=== PATIENT | female | born 1985 | race Caucasian/White ===

== ENCOUNTER 2016-10-09 19:13 | Emergency (ER) | payer OTHER ==
--- NOTE | ~2016-10-09 | CT4 ---
[facility] A Service of [facility] & [facility] RADIOLOGY TEXT RESULTS PATIENT: NOHELIA RODRIGUEZ LOCATION: [facility] : 81 UNIT #: [id number] AGE: [address]: Zac Quinn MD SEX: F ORDER DR: [id number] [facility] [address] [place], [place] [address] [id number] MR#: [id number] #: [id number] NAME: NOHELIA RODRIGUEZ : 1985 SEX: F STUDY DATE/TIME: 10/09/2016 19:31 UNIT: [facility] ROOM: STUDY DESCRIPTION: CT Abd and Pelv Wo Cont Attending Physician: Zac Quinn M.D. Ordering Physician: Zac Quinn M.D. Primary Care Physician: [facility], [facility]. MEDICAL IMAGING REPORT This report is preliminary unless electronic signature is present EXAM CT abdomen and pelvis without IV contrast COMPARISON January 09, 2013. INDICATIONS 31-year-old female with left-sided abdominal pain radiating to the back for [address] exam was performed with one or more of the following radiation dose reduction techniques: Automatic exposure control, adjustment of mA and/or kV according to patient size, and iterative reconstruction. FINDINGS Axial CT imaging of the abdomen and pelvis was performed without IV contrast. Lack of IV contrast limits evaluation of adenopathy, vasculature and viscera. Coronal and sagittal reformats were constructed. Very small fat-containing umbilical hernia. There is also apparent fat and possibly fluid containing very tiny hernia along the midline lower anterior abdominal wall, new from comparison, perhaps incisional. No acute fractures or suspicious osseous lesions. No acute findings in imaged chest. Unenhanced liver, gallbladder, pancreas, spleen, adrenal glands and right kidney are unremarkable. There is nonobstructive calculus in the mid pole of the left kidney. There is mild left pelvocaliectasis and mild left hydroureter due to an obstructing calculus in the distal left ureter just above the ureterovesicular junction. This calculus measures approximately 3 mm. There are bilateral pelvic phleboliths. Urinary bladder is unremarkable. Uterus and adnexa appear unremarkable. No evidence of bowel obstruction. Appendix is normal. Abdominal aorta is normal in STS. [facility] A Service of [facility] & [facility] RADIOLOGY TEXT RESULTS PATIENT: NOHELIA RODRIGUEZ LOCATION: [facility] : 81 UNIT #: [id number] AGE: [address]: Zac Quinn MD SEX: F ORDER DR: course and caliber. No free fluid or pneumoperitoneum. No adenopathy. IMPRESSION 1. 3 mm obstructive calculus in the distal left ureter causing mild proximal left hydroureter and mild left pelvocaliectasis. 2. Punctate nonobstructive calculus in the left kidney. 3. Small fat-containing umbilical hernia. There is a new, possibly fluid-containing and definite fat-containing midline hernia in the lower anterior abdominal wall, perhaps incisional in nature. This is likely clinically insignificant. Dictated by... Dwight Barnes M.D. THIS IS AN ELECTRONICALLY VERIFIED REPORT Dwight Barnes M.D. at 10/12/2016 4:26 PM ANTONIO/adam TD: 10/10/2016 08:23 JOB #: [id number] MEDICAL IMAGING REPORT Page 1 of 1 COPY
[2016-10-09 17:51] LABS: URINE SOURCE CLEAN CATCH
[2016-10-09 18:07] LABS: URINE APPEARANCE CLOUDY; URINE BILIRUBIN NEG (NEG); URINE BLOOD 3+ (NEG); URINE COLOR YELLOW; URINE GLUCOSE NEG (NEG); URINE KETONE TRACE (NEG); URINE LEUKOCYTE ESTERASE NEG (NEG); URINE NITRATE NEG (NEG); URINE PROTEIN NEG (NEG); URINE SPECIFIC GRAVITY 1.037 (1.003-1.035)
[2016-10-09 18:10] LABS: CULTURE INDICATED? YES; URINE BACTERIA AUWI 2+ (NEGATIVE); URINE SQUAMOUS EPITHELIAL CELL MOD /[HPF]
[2016-10-09 18:41] LABS: URINE CRYSTALS CALCIUM OXALATE /[HPF]; URINE MUCUS PRESENT
[2016-10-09 18:45] LABS: BASOPHIL# 0.1 X10e3 (0-0.3); BASOPHIL% 0.4 % (0-2.5); EOSINOPHIL% 0.3 % (0.0-7.0); HEMATOCRIT 42.6 % (35.0-45.0); LYMPHOCYTE# 1.7 X10e3 (1.0-3.5); LYMPHOCYTE% 11.4 % (17.0-45.0); MEAN CELL VOLUME 84.8 FL (83-96); MEAN CORPUSCULAR HEMOGLOBIN 27.8 PG (28-34); MEAN CORPUSCULAR HGB CONC 32.8 g/dL (30-36); MEAN PLATELET VOLUME 9.9 FL (6.5-11.5); MONOCYTE# 0.9 X10e3 (0-1.0); MONOCYTE% 5.9 % (3.0-12.0); NEUTROPHIL# 12.5 X10e3 (1.5-7.1); PLATELET COUNT 232 X10e3 (140-420); RED BLOOD COUNT 5.02 X10e (3.90-5.30); RED CELL DISTRIBUTION WIDTH 13.1 % (11.0-15.5); WHITE BLOOD COUNT 15.2 X10e3 (4.0-10.5)
[2016-10-09 18:47] LABS: DIFF IND YES
[2016-10-09 18:59] LABS: ALBUMIN SERUM 3.9 g/dL (3.5-5.0); BILIRUBIN,TOTAL 0.4 mg/dL (0.2-2.0); BUN/CREATININE RATIO 13.63; CALCIUM SERUM 9.2 mg/dL (8.4-10.2); CREATININE SERUM 1.1 mg/dL (0.6-1.4); GLOM FILT RATE Estimated 65.9 mL/min (>60); POTASSIUM 3.8 mmol/L (3.5-5.1); PROTEIN TOTAL SERUM 7.3 g/dL (6.0-8.3)
[2016-10-09 19:03] LABS: PLATELET ESTIMATE NORMAL (NORMAL); RBC NORMAL YES
[~2016-10-09 19:13] MED LIST: ALBUTEROL17 GM INH; AMOXICILLIN875 MG PO; AMOXIL500 M1 PO; AMOXIL875 MG PO; BENZONATATE PO; CELEXA20 MG PO; CIPRO PO; HYDRALAZINE HCL25 MG PO; IBUPROFEN800 MG PO; MUCINEX DM1 TAB.SR . PO; NO MEDICATIONS; PHENERGAN25 M1 PO; SUDAFED PO; VOLTAREN75 MG PO
== END 2016-10-09 21:05 | disposition home or self-care (01) ==
LOC: CED 19:13
PROVIDERS: Emergency Medicine
DX: N13.2 Hydronephrosis with renal and ureteral calculous obstruction (principal)
CPT/HCPCS: 36415; 74176; 80053; 81003; 83690; 84703; 85025; 87086; 96374; 99284; J1885; J2270; J2405